=== PATIENT | female | born 1940 | race Two or more races ===

== ENCOUNTER 2024-01-29 12:14 | Outpatient (CLI) | payer OTHER ==
[~2024-01-29 12:14] MED LIST: VITAMIN E100 UNI4; ZIAC 2.5-6.251 EACH
== END 2024-01-29 12:21 | disposition home or self-care (01) ==
LOC: RAD 12:14
PROVIDERS: ATTEND Physical Medicine & Rehabilitation Hospice and Palliative Medicine
DX: M25.512 Pain in left shoulder (principal); M75.42 Impingement syndrome of left shoulder; M75.102 Unspecified rotator cuff tear or rupture of left shoulder, not specified as traumatic